=== PATIENT | male | born 1945 | race Caucasian/White ===

== ENCOUNTER 2021-11-27 23:51 | Emergency (ER) | payer OTHER, MEDICARE ==
[~2021-11-27] VITALS: Ht 185.4 cm; Wt 89.5 kg
--- NOTE | 2021-11-28 00:53 | NUR ---
PT ROOMED IN BED 10. ASSUMED CARE OF PT.
[2021-11-28] MEDS ORDERED: GLYC-23 RC (00:56)
[2021-11-28 01:06] VITALS: BP 135/92
== END 2021-11-28 01:07 | disposition home or self-care (01) ==
LOC: ER 23:52
DX: K62.3 Rectal prolapse (principal); K59.00 Constipation, unspecified; I48.91 Unspecified atrial fibrillation; Z88.8 Allergy status to other drugs, medicaments and biological substances; Z85.118 Personal history of other malignant neoplasm of bronchus and lung
CPT/HCPCS: 99282

== ENCOUNTER 2021-12-08 06:30 | Day surgery (SDC) | payer OTHER ==
[2021-12-08] VITALS (14 sets, daily range): BP systolic 101–160; BP diastolic 72–102
[~2021-12-08] VITALS: Ht 185.4 cm; Wt 86.0 kg
[~2021-12-08 06:30] MED LIST: GLYC-23 RC
[2021-12-08] MEDS ORDERED: METH-604 PO (06:54)
[2021-12-08] MEDS ORDERED: METH-375 PO (06:54)
[2021-12-08] MEDS ORDERED: normal saline 1000ml 1,000 ML IV SCH (07:00)
[2021-12-08] MEDS ORDERED: HYDR12.55 PO (07:01)
[2021-12-08] MEDS ORDERED: AMLO5TAB PO (07:01)
[2021-12-08] MEDS ORDERED: DABI150C PO (07:01)
[2021-12-08] MEDS ORDERED: HYDR-3972 PO (07:01)
[2021-12-08] MEDS ORDERED: METO100T7 PO (07:01)
[2021-12-08] MEDS ORDERED: LISI20TA28 PO (07:01)
[2021-12-08] MEDS ORDERED: ACET-812 PO (07:07)
[2021-12-08] MEDS ORDERED: OMEG1CAP2 PO (07:07)
[2021-12-08] MEDS ORDERED: CHOL100046 PO (07:07)
[2021-12-08] MEDS ORDERED: CALC-492 PO (07:07)
[2021-12-08] MEDS ORDERED: MULT-1172 PO (07:07)
[2021-12-08] MEDS ORDERED: LYSI500T40 PO (07:07)
[2021-12-08 07:25] LABS: BASOPHILS % (AUTO) 0.7 % (0-1); EOSINOPHILS # (AUTO) 0.2 X10'3 (0-0.9); EOSINOPHILS % (AUTO) 3.2 % (0-6); HEMOGLOBIN 13.3 g/dl (14.0-17.9); LYMPHOCYTES # (AUTO) 1.3 X10'3 (1.1-4.8); LYMPHOCYTES % (AUTO) 21.1 % (21-51); MEAN CORPUSCULAR HEMOGLOBIN 32.6 PG (27.0-31.0); MEAN CORPUSCULAR HGB CONC 34.2 g/dL (33.0-36.5); MEAN CORPUSCULAR VOLUME 95.5 FL (78-98); MONOCYTES # (AUTO) 0.6 X10'3 (0-0.9); MONOCYTES % (AUTO) 9.4 % (2-12); NEUTROPHILS # (AUTO) 3.9 X10'3 (1.8-7.7); NEUTROPHILS % (AUTO) 65.6 % (42-75); PLATELET COUNT 255 X10'3 (140-440); RED BLOOD COUNT 4.08 X10'6 (4.70-6.10); RED CELL DISTRIBUTION WIDTH 12.9 % (11.5-14.5); WHITE BLOOD COUNT 5.9 X10'3 (4.5-11.0)
[2021-12-08] MEDS ORDERED: fentaNYL/PF 50MCG/1 ML 2ML syringe ONE (08:46)
[2021-12-08] MEDS ORDERED: midazolam 1 mg/ML 2ml injection ONE (08:46)
[2021-12-08] MEDS ORDERED: LIDOcaine 1% 30ml preserv. free vial ONE (09:02)
[2021-12-08] MEDS ORDERED: sodium chloride 0.45% 1,000 ML IV SCH (09:45)
== END 2021-12-08 12:15 | disposition home or self-care (01) ==
LOC: SSTAY O 06:30
PROVIDERS: ATTEND Radiology Diagnostic Radiology
DX: R91.8 Other nonspecific abnormal finding of lung field (principal); C34.12 Malignant neoplasm of upper lobe, left bronchus or lung; I48.91 Unspecified atrial fibrillation; I10 Essential (primary) hypertension; Z88.8 Allergy status to other drugs, medicaments and biological substances; Z79.899 Other long term (current) drug therapy; Z98.890 Other specified postprocedural states
CPT/HCPCS: 32408; 36415; 71045; 85025; 85610; J2250; J3010; J3490; J7030; 77012

== ENCOUNTER 2022-06-09 08:21 | Day surgery (SDC) | payer OTHER ==
[~2022-06-09] VITALS: Ht 185.4 cm; Wt 85.8 kg
[~2022-06-09 08:21] MED LIST changes: +ACET-812 PO; +AMLO5TAB PO; +CALC-492 PO; +CHOL100046 PO; +DABI150C PO; -GLYC-23 RC; +HYDR-3972 PO; +HYDR12.55 PO; +LISI20TA28 PO; +LYSI500T40 PO; +METH-375 PO; +METH-604 PO; +METO100T7 PO; +MULT-1172 PO; +OMEG1CAP2 PO
[2022-06-09] MEDS ORDERED: normal saline 1000ml 1,000 ML IV PRN (08:45)
[2022-06-09] MEDS ORDERED: PRE5T PO (08:53)
[2022-06-09 09:20] VITALS: BP 130/89
[2022-06-09 09:31] LABS: BASOPHILS % (AUTO) 0.4 % (0-1); EOSINOPHILS % (AUTO) 0.2 % (0-6); HEMATOCRIT 38.2 % (42.0-52.0); HEMOGLOBIN 12.4 g/dl (14.0-17.9); LYMPHOCYTES # (AUTO) 0.6 X10'3 (1.1-4.8); LYMPHOCYTES % (AUTO) 10.7 % (21-51); MEAN CORPUSCULAR HEMOGLOBIN 30.8 PG (27.0-31.0); MEAN CORPUSCULAR HGB CONC 32.5 g/dL (33.0-36.5); MEAN PLATELET VOLUME 6.8 FL (7.4-10.4); MONOCYTES # (AUTO) 0.7 X10'3 (0-0.9); MONOCYTES % (AUTO) 11.4 % (2-12); NEUTROPHILS # (AUTO) 4.5 X10'3 (1.8-7.7); NEUTROPHILS % (AUTO) 77.3 % (42-75); PLATELET COUNT 224 X10'3 (140-440); RED BLOOD COUNT 4.02 X10'6 (4.70-6.10); RED CELL DISTRIBUTION WIDTH 13.6 % (11.5-14.5); WHITE BLOOD COUNT 5.8 X10'3 (4.5-11.0)
[2022-06-09 09:38] LABS: ALBUMIN 3.1 G/DL (3.4-5.0); ANION GAP 9 (8-16); BLOOD UREA NITROGEN 23 MG/DL (7-18); BUN/CREATININE RATIO 29.9 (5.4-32.0); CALCIUM 8.5 MG/DL (8.5-10.1); CHLORIDE 103 MMOL/L (99-107); CREATININE 0.77 MG/DL (0.60-1.10); GLUCOSE 105 MG/DL (70-104); POTASSIUM 4.1 MMOL/L (3.5-5.1); SODIUM 139 MMOL/L (135-145); TOTAL CARBON DIOXIDE 27.5 MMOL/L (24-32); eGFR > 90 ML/MIN
== END 2022-06-09 09:33 | disposition home or self-care (01) ==
LOC: SSTAY O 08:21
PROVIDERS: ATTEND Preventive Medicine Aerospace Medicine
DX: R91.8 Other nonspecific abnormal finding of lung field (principal); Z53.8 Procedure and treatment not carried out for other reasons
CPT/HCPCS: 36415; 80048; 85025; J7030

== ENCOUNTER 2022-07-20 04:55 | Observation (INO) | payer OTHER, MEDICARE ==
[~2022-07-20] VITALS: Ht 185.4 cm; Wt 88.6 kg
[~2022-07-20 04:55] MED LIST changes: -HYDR-3972 PO; -METH-604 PO; +PRE5T PO
--- NOTE | 2022-07-20 05:08 | NUR ---
poison control consulted symptomatic treatment, poison control reccomends 12 hr observation, use narcan if resp depression occurs
[2022-07-20] MEDS ORDERED: diltiazem 5mg/ml 5ml inj. IV ONE (05:45)
[2022-07-20] MEDS: normal saline 1000ml 1,000 ML IV SCH ×4 (05:57→13:17)
[2022-07-20 06:21] LABS: BASOPHILS % (AUTO) 0.2 % (0-1); EOSINOPHILS % (AUTO) 0 % (0-6); HEMATOCRIT 36.1 % (42.0-52.0); HEMOGLOBIN 12.1 g/dl (14.0-17.9); LYMPHOCYTES # (AUTO) 0.3 X10'3 (1.1-4.8); LYMPHOCYTES % (AUTO) 6.6 % (21-51); MEAN CORPUSCULAR HEMOGLOBIN 30.9 PG (27.0-31.0); MEAN CORPUSCULAR HGB CONC 33.4 g/dL (33.0-36.5); MEAN CORPUSCULAR VOLUME 92.6 FL (78-98); MEAN PLATELET VOLUME 6.9 FL (7.4-10.4); MONOCYTES # (AUTO) 0.1 X10'3 (0-0.9); MONOCYTES % (AUTO) 1.9 % (2-12); NEUTROPHILS # (AUTO) 3.7 X10'3 (1.8-7.7); NEUTROPHILS % (AUTO) 91.3 % (42-75); PLATELET COUNT 257 X10'3 (140-440); RED CELL DISTRIBUTION WIDTH 14.5 % (11.5-14.5); WHITE BLOOD COUNT 4.1 X10'3 (4.5-11.0)
[2022-07-20 06:39] LABS: ALANINE AMINOTRANSFERASE 18 U/L (12-78); ALBUMIN 3.1 G/DL (3.4-5.0); ALBUMIN/GLOBULIN RATIO 0.8 (1.1-1.5); ALKALINE PHOSPHATASE 78 IU/L (46-116); ANION GAP 9 (8-16); ASPARTATE AMINO TRANSFERASE 18 U/L (10-37); BILIRUBIN,TOTAL 0.5 MG/DL (0.1-1.0); BLOOD UREA NITROGEN 23 MG/DL (7-18); BUN/CREATININE RATIO 28.4 (5.4-32.0); CALCIUM 8.9 MG/DL (8.5-10.1); CHLORIDE 96 MMOL/L (99-107); CREATININE 0.81 MG/DL (0.60-1.10); GLUCOSE 197 MG/DL (70-104); SODIUM 130 MMOL/L (135-145); TOTAL CARBON DIOXIDE 25.3 MMOL/L (24-32); TOTAL PROTEIN 7.2 G/DL (6.4-8.2); eGFR > 90 ML/MIN
[2022-07-20] MEDS ORDERED: metoprolol tartrate 1mg/ml inj IV ONE (06:40)
[2022-07-20] MEDS ORDERED: ondansetron/PF 4mg/2ml inj IV PRN (07:40)
[2022-07-20] MEDS ORDERED: POTASSIUM BICARB 20meq eff tab 20 MEQ TABLET.EFF PO PRN ×2 (07:40)
[2022-07-20] MEDS ORDERED: magnesium 2GM in 50ml NS 50 ML IV PRN (07:40)
[2022-07-20] MEDS ORDERED: potassium CL 10mEq/100ml bag 100 ML IV PRN (07:40)
[2022-07-20] MEDS ORDERED: magnesium Cl slow-release 64mg tablet PO PRN (07:40)
[2022-07-20] MEDS ORDERED: magnesium 4gm in 100ml NS 100 ML IV PRN (07:40)
[2022-07-20] MEDS ORDERED: acetaminophen 325mg tablet PO PRN ×2 (07:40)
[2022-07-20] MEDS ORDERED: magnesium hydroxide 30ml (MOM) UD suspension PO PRN (07:40)
[2022-07-20] MEDS ORDERED: K and/or MAG REPLACEMENT MC SCH (08:00)
[2022-07-20] MEDS ORDERED: heparin, porcine 5000 units/ml vial SQ SCH (08:00)
[2022-07-20] MEDS ORDERED: CALC600T22 PO (13:26)
[2022-07-20] MEDS ORDERED: DEXA4TAB73 PO (13:31)
[2022-07-20] MEDS ORDERED: GUAI120L55 PO (13:34)
[2022-07-20] MEDS ORDERED: HYDR-3972 PO (13:35)
[2022-07-20] MEDS ORDERED: METO-384 PO (13:36)
[2022-07-20] MEDS ORDERED: MORP-92 PO (13:39)
[2022-07-20] MEDS ORDERED: ONDA-104 PO (13:40)
[2022-07-20] MEDS ORDERED: POLY17PO59 PO (13:41)
[2022-07-20] MEDS ORDERED: SILD100T PO (13:42)
[2022-07-20 14:29] LABS: ALANINE AMINOTRANSFERASE 15 U/L (12-78); ALBUMIN 2.6 G/DL (3.4-5.0); ALBUMIN/GLOBULIN RATIO 0.7 (1.1-1.5); ALKALINE PHOSPHATASE 68 IU/L (46-116); ANION GAP 5 (8-16); ASPARTATE AMINO TRANSFERASE 11 U/L (10-37); BILIRUBIN,TOTAL 0.3 MG/DL (0.1-1.0); BLOOD UREA NITROGEN 20 MG/DL (7-18); BUN/CREATININE RATIO 29.9 (5.4-32.0); CALCIUM 8.1 MG/DL (8.5-10.1); CHLORIDE 100 MMOL/L (99-107); CREATININE 0.67 MG/DL (0.60-1.10); GLUCOSE 127 MG/DL (70-104); POTASSIUM 4.1 MMOL/L (3.5-5.1); SODIUM 133 MMOL/L (135-145); TOTAL CARBON DIOXIDE 28.3 MMOL/L (24-32); TOTAL PROTEIN 6.3 G/DL (6.4-8.2); eGFR > 90 ML/MIN
[2022-07-20 16:30] VITALS: BP 121/82
[2022-07-20] MEDS ORDERED: LISI5TAB22 PO (16:30)
--- NOTE | 2022-07-20 17:29 | NUR ---
PT DC'D HOME WITH FAMILY, WILL FOLLOW UP WITH [facility] TOMORROW FOR PRESCRIPTION AND BLOOD DRAW, VERBALIZED UNDERSTANDING DC INSTRUCTIONS, NO QUESTIONS
[2022-07-20] MEDS ORDERED: metoprolol succinate 25mg (24-HOUR) SR. Tablet PO SCH (20:00)
[2022-07-20] MEDS ORDERED: temazepam 15mg capsule PO PRN (21:00)
[2022-07-21] MEDS ORDERED: lisinopril 5mg tablet PO SCH (08:00)
[2022-07-21] MEDS ORDERED: METHIMAZOLE 10 MG PO SCH (08:00)
[2022-07-21] MEDS ORDERED: amLODIPine 5mg tablet PO SCH (08:00)
== END 2022-07-20 17:47 | disposition home or self-care (01) ==
LOC: ER 04:55 → ED HOLD 07:42
PROVIDERS: ADMIT Internal Medicine; ATTEND Internal Medicine
DX: T40.2X1A Poisoning by other opioids, accidental (unintentional), initial encounter (principal); I48.20 Chronic atrial fibrillation, unspecified; I10 Essential (primary) hypertension; E03.9 Hypothyroidism, unspecified; C34.90 Malignant neoplasm of unspecified part of unspecified bronchus or lung; E05.90 Thyrotoxicosis, unspecified without thyrotoxic crisis or storm; Z85.118 Personal history of other malignant neoplasm of bronchus and lung; Z86.73 Personal history of transient ischemic attack (TIA), and cerebral infarction without residual deficits; Z87.891 Personal history of nicotine dependence; Z79.899 Other long term (current) drug therapy
CPT/HCPCS: 36415; 80053; 83880; 84484; 85025; 87081; 93005; 96361; 96372; 96374; 96375; 99284; G0378; J1644; J3490; J7030; J7040; A4340